=== PATIENT | female | born 1945 | race Caucasian/White ===

== ENCOUNTER → 2017-02-14 | Outpatient (CLI) | payer OTHER ==
--- NOTE | 2017-02-14 16:34 | RADRPT ---
PROCEDURE: I- 131 therapy CLINICAL INDICATION: 72 -year-old patient with hyperthyroidism, for I - 131 ablation. TECHNIQUE: On February 14, 2017 , 26.9 mCi of I - 131 were administered orally to the patient. COMPARISON: No prior treatments. FINDINGS: The patient was advised about the nature of the treatment, alternatives, benefits, risks, side effec ts in radiation safety precautions. Written informed consent was obtained. No immediate complications were observed. IMPRESSION: 26.9 mCi of oral I - 131 therapy. RPTAT: QQ .Claudia Mcleod MD, MD Date Time Electronically viewed and signed by .Claudia Mcleod MD, on 02/14/2017 16:34 .L/
== END | disposition home or self-care (01) ==
LOC: NUC 13:53
PROVIDERS: ATTEND Internal Medicine
DX: E05.20 Thyrotoxicosis with toxic multinodular goiter without thyrotoxic crisis or storm (principal)
CPT/HCPCS: 79005; A9517